=== PATIENT | female | born 1970 | race Caucasian/White ===

== ENCOUNTER → 2018-02-05 09:28 | Outpatient (CLI) | payer MEDICAID ==
[2010-01-01 19:25] VITALS: BMI 24.1
--- NOTE | ~2018-02-05 | EC ---
PATIENT:RADHA VELÁZQUEZ DATE OF SERVICE: 02/05/18 SEX: F MEDICAL RECORD: [id number] DATE OF : [birth year] LOCATION:[facility] AGE OF PATIENT: 47 ADMISSION DATE: 02/05/18 REFERRING PHYSICIAN: INTERPRETING PHYSICIAN: TITO MONCADA MD ECHOCARDIOGRAM REPORT ECHO CHARGES 4 ECHO COMPLETE Date: 02/05/18 CLINICAL DIAGNOSIS: PALPITATIONS ECHOCARDIOGRAPHIC MEASUREMENTS (adult normal given) AC root (d.<3.7cm) 4.1 cm LV Septum d (<1.2 cm> 0.8 cm Valve Excursion 2.0 cm LV Septum (systole) 1.1 cm Left Atria (s.<4.0cm> 3.7 cm LVPW d(<1.2cm) 1.2 cm RV (d.<2.3cm) 2.8 cm LVPW (sytole) 1.3 cm LV diastole(<5.6CM) 5.3 cm MV E-F(>70mm/sec) cm LV systole 4.7 cm LVOT Diameter 2.0 cm MV exc.(>10mm) cm Est.ejection fraction (50-75%) % DOPPLER: LVIT cm/sec A 78 cm/sec E 75 cm/sec LA cm/sec RVSP 21.5 mmHg LVOT 96 cm/sec AOP1/2T m/s Asc. Ao 165 cm/sec RVOT 57 cm/sec RA cm/sec PA 78 cm/sec AV Gradient Peak 10.8 mmHg AV Mean 5.3 mmHg AV Area 2.0 cm MV Gradient Peak 3.5 mmHg MV Mean 1.7 mmHg MV Area cm COMMENTS: Parliamentary Archivist: Ethan FOURNIERLISBETH WAYNE Academic Coach: 1 Dr. Moncada TAPE# PACS Pericardial Effusion N DATE OF SERVICE: 02/05/2018 FINDINGS: 1. Left ventricular chamber size is within normal limits. Left ventricular systolic function is normal. Overall ejection fraction estimated at 65%. 2. Left atrium, right atrium, and right ventricular chamber sizes are within normal limits. 3. Valvular structures have normal structure and motion. 4. Doppler interrogation only reveals trace tricuspid regurgitation, no other valvular insufficiency or stenosis. Pulmonary systolic pressure is normal ECHOCARDIOGRAM REPORT [id number] RADHA VELÁZQUEZ estimated at 21 mmHg. 5. No evidence of pericardial effusion or left ventricular thrombus. TRANSINT:[id number] Voice Confirmation ID: [id number] DOCUMENT ID: [id number] TITO MONCADA MD at 1324 CC: [id number] DICTATION DATE: 02/05/18 1244 CADASTRAL ENGINEER: 02/05/18 1313 REG [facility] [address] [place] [address]
== END | disposition home or self-care (01) ==
LOC: D.ECHO 09:28
DX: R00.2 Palpitations (principal)

== ENCOUNTER → 2018-11-05 10:37 | Outpatient (CLI) | payer OTHER ==
[2010-01-01 19:25] VITALS: BMI 24.1
== END | disposition home or self-care (01) ==
LOC: D.RAD 10:30
PROVIDERS: ATTEND Pediatrics
DX: Z02.71 Encounter for disability determination (principal)

== ENCOUNTER 2018-12-23 12:14 | Emergency (ER) | payer MEDICAID ==
[~2018-12-23] VITALS: Ht 165.1 cm; Wt 75.0 kg
[2018-12-23 12:19] VITALS: Ht 165.1 cm; Wt 75.0 kg
[2018-12-23] MEDS ORDERED: LISINOPRIL20 MG PO ×2 (12:19→18:29)
[2018-12-23] MEDS ORDERED: PERCOCET 10-321 EAC1 PO (12:20)
[2018-12-23 13:12] LABS: CALC OSMOLALITY 276 mosm/kg (275-300); CALCIUM 8.8 mg/dL (8.5-10.1); CARBON DIOXIDE 29.4 mmol/L (21.0-32.0); CHLORIDE - SERUM 103 mmol/L (98-107); GLUCOSE 99 mg/dL (74-106); POTASSIUM - SERUM 3.6 mmol/L (3.5-5.1); SODIUM 139 mmol/L (136-145); UREA NITROGEN 10 mg/dL (7-18); eGFR NON AFRICAN AMERICAN 62 mL/min (90-120)
[2018-12-23 13:29] LABS: ALBUMIN 3.4 g/dL (3.4-5.0); ALKALINE PHOSPHATASE 94 U/L (46-116); ALT (SGPT) 32 U/L (10-68); BILIRUBIN - TOTAL 0.33 mg/dL (0.2-1.3); CKMB 0.7 U/L (0.0-3.6); CREATINE KINASE 84 UL (21-215); PROTEIN - SERUM 8.2 g/dL (6.4-8.2)
[2018-12-23 13:30] LABS: TROPONIN-I < 0.017 ng/mL (0.000-0.060)
[2018-12-23 13:48] LABS: APPEARANCE SL CLDY (CLEAR); BILIRUBIN NEGATIVE (NEGATIVE); COLOR YELLOW (YELLOW); GLUCOSE NEGATIVE (NEGATIVE); KETONE NEGATIVE (NEGATIVE); NITRITE POSITIVE (NEGATIVE); PROTEIN NEGATIVE (NEGATIVE); UROBILINOGEN NORMAL (NORMAL)
[2018-12-23 13:49] LABS: AMORPHOUS SEDIMENT <1+ /lpf (NONE SEEN); BACTERIA MANY /hpf (NEGATIVE); EPITHELIAL CELLS 0-5 /hpf (0-5); MUCUS <1+ /lpf (NONE SEEN); RED CELLS - URINE RARE /hpf (0-5); WHITE CELLS - URINE 0-5 /hpf (NEGATIVE)
[2018-12-23 13:50] LABS: GRANULAR CAST RARE /lpf (NONE SEEN); HYALINE CAST RARE /lpf (NONE SEEN)
[2018-12-23 14:04] LABS: BASOPHILS 0.3 % (0-2); EOSINOPHILS 0.7 % (0-7); HEMOGLOBIN 13.5 g/dL (12-16); IMMATURE GRANULOCYTES 0.3 % (0-5); LYMPHOCYTES 23.3 % (15-50); MCH 27.9 pg (26.0-34.0); MCHC 33.8 g/dL (31.0-37.0); MCV 82.6 fL (80.0-100.0); MEAN PLATELET VOLUME 9.4 fL (7.4-10.4); MONOCYTES 9.4 % (2-11); PLATELET COUNT 306 10x3/uL (130-400); RBC 4.84 10x6/uL (4.00-5.40); WBC 5.9 10x3/uL (4.8-10.8)
[2018-12-23] MEDS ORDERED: NORVASC10 MG PO (18:29)
[2018-12-23 19:15] VITALS: BP 137/89
== END 2018-12-23 19:15 | disposition home or self-care (01) ==
LOC: D.ER 12:14
PROVIDERS: Emergency Medicine
DX: I10 Essential (primary) hypertension (principal); Z91.14 Patient's other noncompliance with medication regimen; Z72.0 Tobacco use